=== PATIENT | male | born 1945 | race Caucasian/White ===

== ENCOUNTER → 2016-08-10 | Outpatient (CLI) | payer MEDICARE, OTHER ==
[~2016-08-10] MED LIST: ACETAMINOPHEN PO; ACTOS PO; AMIODARONE PO; ANTACID650 MG PO; ASPIRIN EC81 M1 PO; ASPIRIN ENTERI325 M1 PO; ASPIRIN81 M2; ASPIRIN81 M2 PO; ASPIRIN81 MG PO; AVAPRO PO; AVAPRO300 M1 PO; AZITHROMYCIN250 MG PO; CECLOR500 MG PO; CIPRO PO; CLOPIDOGREL75 MG PO; CORDARONE200 M1 PO; COUMADIN; COUMADIN PO; COUMADIN1 MG PO; COUMADIN3 MG PO; COUMADIN4 MG PO; COUMADIN6 MG PO; CYANOCOBALAMIN PO; DIABETIC PILL; DICLOFENAC PO; DOK100 MG PO; DURAGESIC1 EACH TOP; FAMOTIDINE20 MG PO; FLEXERIL PO; FLOMAX0.4 M1 PO; FOLIC ACID PO; GABAPENTIN300 MG PO; GLIPIZIDE PO; GLIPIZIDE2.5 MG/BO1 PO; GLUCOPHAGE500 MG PO; GLUCOTROL; GLUCOTROL XL PO; GUAIFENESIN200 M1 PO; HYDROCODON-ACE1 EACH PO; IBUPROFEN PO; KEFLEX500 MG PO; LASIX; LASIX20 MG PO; LISINOPRIL; LISINOPRIL-HCTZ1 T19 PO; LISINOPRIL10 MG PO; LOPRESSOR PO; LOPRESSOR100 MG PO; LORTAB 5/500 TA1 TA1 PO; MEDROL4 MG/DOSE- PO; METFORMIN HCL500 M1 PO; METFORMIN PO; MOBIC PO; MUCINEX PO; NAPROXEN PO; NEURONTIN; NEURONTIN300 MG PO; NITROGLYCERIN0.4 MG SL; NORCO 7.5-3251 EACH PO; OXCARBAZEPINE300 MG PO; PERCOCET5/325 PO; PHENERGAN PO; PHENERGAN25 MG PO; PRAVACHOL; PRAVACHOL80 MG PO; PRAVASTATIN SOD40 MG PO; PRAVASTATIN SOD80 MG PO; PREDNISONE PO; PYRIDOXINE PO; RITE-AID PHARMACY; SKELAXIN PO; SOD BICARBONATE; TEGRETOL PO; TEGRETOL100 MG; TOPIRAGEN100 MG PO; TRICOR145 MG PO; TRILEPTAL300 MG PO; TYLENOL EXTRA500 M1 PO; TYLOX 5/500 CAP1 CAP PO; VICODIN 5/500 T1 TAB PO; VITAMIN B12 INJECT IM; WARFARIN SODIUM4 M1 PO; ZANTAC PO; ZESTRIL5 MG PO; ZYLOPRIM; ZYLOPRIM100 MG PO
[2016-08-10 14:07] LABS: HEMATOCRIT 35.7 % (38.0-50.0); HEMOGLOBIN 11.9 gm/dL (13.0-16.0); MEAN CORPUSCULAR HEMOGLOBIN 30.7 PG (28-34); MEAN CORPUSCULAR HGB CONC 33.4 g/dL (30-36); MEAN PLATELET VOLUME 7.9 FL (6.5-11.5); RED BLOOD COUNT 3.87 X10e (3.90-5.60); RED CELL DISTRIBUTION WIDTH 13.7 % (11.0-15.5); WHITE BLOOD COUNT 10.5 X10e3 (4.0-10.5)
[2016-08-10 14:44] LABS: BILIRUBIN,TOTAL 0.6 mg/dL (0.2-2.0); BUN/CREATININE RATIO 19.37; CALCIUM SERUM 8.7 mg/dL (8.4-10.2); CREATININE SERUM 1.6 mg/dL (0.6-1.4); GLOM FILT RATE Estimated 45.4 mL/min (>60); PHOSPHOROUS 2.4 mg/dL (2.5-4.6); POTASSIUM 3.3 mmol/L (3.5-5.1); PROTEIN TOTAL SERUM 6.8 g/dL (6.0-8.3); URIC ACID 7.2 mg/dL (2.6-7.2)
== END | disposition home or self-care (01) ==
LOC: CLAB 13:32
PROVIDERS: Internal Medicine Nephrology
DX: I12.9 Hypertensive chronic kidney disease with stage 1 through stage 4 chronic kidney disease, or unspecified chronic kidney disease (principal); N18.3 Chronic kidney disease, stage 3 (moderate)
CPT/HCPCS: 36415; 80053; 82310; 83036; 83970; 84100; 84550; 85027

== ENCOUNTER 2016-08-22 12:58 | Emergency (ER) | payer MEDICARE, OTHER ==
--- NOTE | ~2016-08-22 | CR150 ---
[facility] A Service of [facility] & [facility] RADIOLOGY TEXT RESULTS PATIENT: GHAZALA KIRBY LOCATION: [place] : 41 UNIT #: [id number] AGE: [address]: Georges Michelle MD SEX: M ORDER DR: [id number] [facility] [address] [place], [place] [address] [id number] MR#: [id number] Acc #: [id number] NAME: GHAZALA KIRBY : 1945 SEX: M STUDY DATE/TIME: 08/22/2016 12:39 UNIT: [place] ROOM: STUDY DESCRIPTION: CR Hip Min 2 Views Lt Attending Physician: Georges Michelle M.D. Ordering Physician: Georges Michelle M.D. Primary Care Physician: No Primary Care Physician MEDICAL IMAGING REPORT This report is preliminary unless electronic signature is present EXAM AP pelvis and left hip DATE OF EXAMINATION 08/22/2016 COMPARISON None. HISTORY Left hip pain, unable to bear weight for 1 week. 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 There is prior lumbar surgery. There is osteopenia but there is no fracture or dislocation or convincing acute abnormality. Dictated by... Tao Mc M.D. THIS IS AN ELECTRONICALLY VERIFIED REPORT Tao Mc M.D. at 08/23/2016 4:14 PM JEAN/levon TD: 08/22/2016 17:58 JOB #: [id number] MEDICAL IMAGING REPORT COPY
== END 2016-08-22 14:09 | disposition home or self-care (01) ==
LOC: CED 12:58
DX: M25.552 Pain in left hip (principal); E11.9 Type 2 diabetes mellitus without complications; Z98.890 Other specified postprocedural states; Z88.8 Allergy status to other drugs, medicaments and biological substances
CPT/HCPCS: 73502; 96372; 99283; J1885

== ENCOUNTER → 2017-01-13 | Outpatient (CLI) | payer MEDICARE, OTHER ==
[2017-01-13 14:21] LABS: HEMATOCRIT 31.7 % (38.0-50.0); HEMOGLOBIN 10.5 gm/dL (13.0-16.0); MEAN CELL VOLUME 92.7 FL (83-96); MEAN CORPUSCULAR HEMOGLOBIN 30.7 PG (28-34); MEAN CORPUSCULAR HGB CONC 33.1 g/dL (30-36); MEAN PLATELET VOLUME 7.8 FL (6.5-11.5); RED BLOOD COUNT 3.42 X10e (3.90-5.60); RED CELL DISTRIBUTION WIDTH 14.1 % (11.0-15.5); WHITE BLOOD COUNT 10.8 X10e3 (4.0-10.5)
[2017-01-13 15:18] LABS: BUN/CREATININE RATIO 21.42; CALCIUM SERUM 8.9 mg/dL (8.4-10.2); CREATININE SERUM 1.4 mg/dL (0.6-1.4); GLOM FILT RATE Estimated 49.5 mL/min (>60); PHOSPHOROUS 2.5 mg/dL (2.5-4.6); POTASSIUM 3.8 mmol/L (3.5-5.1)
== END | disposition home or self-care (01) ==
LOC: CLAB 13:45
PROVIDERS: Internal Medicine Nephrology
DX: N18.3 Chronic kidney disease, stage 3 (moderate) (principal)
CPT/HCPCS: 36415; 80048; 82310; 83970; 84100; 85027

== ENCOUNTER 2017-02-15 19:19 | Emergency (ER) | payer OTHER ==
[~2017-02-15] VITALS: Ht 175.3 cm; Wt 108.9 kg
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
== END 2017-02-15 21:35 | disposition home or self-care (01) ==
LOC: CED 19:19 → CFTX 19:19
DX: S80.12XA Contusion of left lower leg, initial encounter (principal); W22.8XXA Striking against or struck by other objects, initial encounter; Y92.69 Other specified industrial and construction area as the place of occurrence of the external cause; E78.5 Hyperlipidemia, unspecified; I10 Essential (primary) hypertension; E11.9 Type 2 diabetes mellitus without complications; I48.91 Unspecified atrial fibrillation; Z88.8 Allergy status to other drugs, medicaments and biological substances
CPT/HCPCS: 29540; 73590; 99283

== ENCOUNTER 2017-02-16 12:27 | Emergency (ER) | payer OTHER ==
[~2017-02-16] VITALS: Ht 175.3 cm; Wt 108.9 kg
[2017-02-16 13:36] LABS: BASOPHIL% 0.6 % (0-2.5); EOSINOPHIL# 0.4 X10e3 (0-0.7); EOSINOPHIL% 4.6 % (0.0-7.0); HEMATOCRIT 29.5 % (38.0-50.0); HEMOGLOBIN 10.1 gm/dL (13.0-16.0); LYMPHOCYTE# 1.5 X10e3 (1.0-3.5); LYMPHOCYTE% 18.8 % (17.0-45.0); MEAN CELL VOLUME 92.3 FL (83-96); MEAN CORPUSCULAR HEMOGLOBIN 31.6 PG (28-34); MEAN CORPUSCULAR HGB CONC 34.2 g/dL (30-36); MEAN PLATELET VOLUME 7.2 FL (6.5-11.5); MONOCYTE# 0.7 X10e3 (0-1.0); MONOCYTE% 9.3 % (3.0-12.0); NEUTROPHIL# 5.2 X10e3 (1.5-7.1); NEUTROPHIL% 66.7 % (40-75); PLATELET COUNT 211 X10e3 (140-420); RED BLOOD COUNT 3.19 X10e (3.90-5.60); RED CELL DISTRIBUTION WIDTH 15.5 % (11.0-15.5); WHITE BLOOD COUNT 7.8 X10e3 (4.0-10.5)
[2017-02-16 13:51] LABS: DIFF IND NO
[2017-02-16 13:53] LABS: INR 1.8; PROTHROMBIN TIME (PATIENT) 19.5 SECONDS (10.0-11.7)
== END 2017-02-16 16:18 | disposition home or self-care (01) ==
LOC: CED 12:27
PROVIDERS: Emergency Medicine
DX: S81.812A Laceration without foreign body, left lower leg, initial encounter (principal); I10 Essential (primary) hypertension; E78.5 Hyperlipidemia, unspecified; I48.91 Unspecified atrial fibrillation; E11.9 Type 2 diabetes mellitus without complications; Z88.8 Allergy status to other drugs, medicaments and biological substances; W22.8XXA Striking against or struck by other objects, initial encounter
CPT/HCPCS: 12002; 36415; 85025; 85610; 99283